=== PATIENT | male | born 1955 | race Caucasian/White ===

== ENCOUNTER 2017-01-27 16:45 | Emergency (ER) | payer SELFPAY ==
[2017-01-27 16:57] VITALS: BP 123/72
--- NOTE | 2017-01-27 17:44 | RAD ---
Indication: Posterior RIGHT thigh pain following injury yesterday. Comparison: No relevant prior exams available on the [facility] for comparison. Technique: AP pelvis and AP and frog-leg lateral views RIGHT hip. Report: The RIGHT hip is normally located and demonstrates preserved joint space. No fracture or radiographic stigmata of stress reaction. No pelvic fracture or joint diastases. Lumbar sacral spine degenerative spondylosis and facet joint osteoarthritis. Unremarkable soft tissue contours. IMPRESSION: No radiographic evidence for traumatic injury at the pelvis or RIGHT hip.
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
== END 2017-01-27 18:20 | disposition home or self-care (01) ==
LOC: UCEAST 16:45
DX: S76.011A Strain of muscle, fascia and tendon of right hip, initial encounter (principal); S76.911A Strain of unspecified muscles, fascia and tendons at thigh level, right thigh, initial encounter; X58.XXXA Exposure to other specified factors, initial encounter; Y92.9 Unspecified place or not applicable
CPT/HCPCS: 99212; G0463

== ENCOUNTER 2017-07-21 15:57 | Emergency (ER) | payer SELFPAY ==
[2017-07-21 16:13] VITALS: BP 121/69
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
== END 2017-07-21 17:10 | disposition home or self-care (01) ==
LOC: UCEAST 15:57
DX: S79.922A Unspecified injury of left thigh, initial encounter (principal); X50.9XXA Other and unspecified overexertion or strenuous movements or postures, initial encounter; Y93.89 Activity, other specified; Y92.159 Unspecified place in reform school as the place of occurrence of the external cause; Y99.0 Civilian activity done for income or pay; Z88.0 Allergy status to penicillin; Z88.8 Allergy status to other drugs, medicaments and biological substances
CPT/HCPCS: 99212; G0463